=== PATIENT | female | born 1985 | race Hispanic/Latino ===

== ENCOUNTER → 2017-10-14 | Outpatient (CLI) | payer MEDICAID, OTHER | END | disposition home or self-care (01) | LOC: RAH 12:59 | PROVIDERS: ATTEND Otolaryngology Plastic Surgery within the Head & Neck | DX: R22.1 Localized swelling, mass and lump, neck (principal) | CPT/HCPCS: 76536 ==

== ENCOUNTER → 2017-11-16 | Outpatient (CLI) | payer OTHER, MEDICAID ==
[2017-11-16 09:04] LABS: INR 0.91 (0.85-1.15); PARTIAL THROMBOPLASTIN TIME 28.3 SEC (26.3-35.5); PROTHROMBIN TIME 9.6 SEC (9.6-11.6)
== END | disposition home or self-care (01) ==
LOC: RAH 08:08
PROVIDERS: ATTEND Otolaryngology Plastic Surgery within the Head & Neck
DX: D49.89 Neoplasm of unspecified behavior of other specified sites (principal)
CPT/HCPCS: 20206; 36415; 76942; 85610; 85730; 88305; A4215

== ENCOUNTER 2018-03-28 17:41 | Observation (INO) | payer OTHER, MEDICAID ==
[~2018-03-28] VITALS: Ht 157.5 cm; Wt 131.1 kg
[2018-03-28 18:56] LABS: APPEARANCE,URINE Clear (CLEAR); BILIRUBIN,URINE Negative (NEGATIVE); COLOR,URINE Yellow (YELLOW); GLUCOSE, URINE (UA) Negative (NEGATIVE); KETONES,URINE Negative (NEGATIVE); LEUKOCYTE ESTERASE ,URINE Small (NEGATIVE); NITRATE,URINE Negative (NEGATIVE); OCCULT BLOOD,URINE Negative (NEGATIVE); PH,URINE 7.5 (5.0-8.0); PROTEIN,URINE Negative (NEGATIVE)
[2018-03-28 19:22] VITALS: BP 123/84
[2018-03-28 19:40] LABS: BACTERIA,URINE Moderate /HPF (None Seen); RBC,URINE None Seen /HPF (0-1)
[2018-03-28] MEDS ORDERED: CEFTRIAXONE SODIUM 1 GM IVP ONE (20:00)
[2018-03-28] MEDS ORDERED: LACTATED RINGERS 1000ML IV ONE (20:00)
== END 2018-03-28 21:15 | disposition home or self-care (01) ==
LOC: EDH 17:41 → LDH 17:43
PROVIDERS: ADMIT Specialist; ATTEND Specialist
DX: O62.9 Abnormality of forces of labor, unspecified (principal); O09.523 Supervision of elderly multigravida, third trimester; Z3A.34 34 weeks gestation of pregnancy; Z79.899 Other long term (current) drug therapy
CPT/HCPCS: 81001; 96374; 99285; G0378 ×3; J0696; J7120; 96360

== ENCOUNTER 2018-04-21 16:22 | Inpatient (IN) | payer OTHER, MEDICAID ==
[~2018-04-21] VITALS: Ht 157.5 cm; Wt 130.2 kg
[2018-04-21 17:24] LABS: APPEARANCE,URINE Clear (CLEAR); BILIRUBIN,URINE Negative (NEGATIVE); COLOR,URINE Yellow (YELLOW); GLUCOSE, URINE (UA) Negative (NEGATIVE); KETONES,URINE >=80 mg/dL (NEGATIVE); LEUKOCYTE ESTERASE ,URINE Moderate (NEGATIVE); NITRATE,URINE Negative (NEGATIVE); OCCULT BLOOD,URINE Negative (NEGATIVE); PH,URINE 5.5 (5.0-8.0); PROTEIN,URINE Trace (NEGATIVE)
[2018-04-21 17:24] LABS: BASOPHILS % (AUTO) 0.4 % (0.0-5.0); EOSINOPHILS % (AUTO) 0.7 % (0.0-8.0); HEMATOCRIT 28.3 % (36-48); LYMPHOCYTES % (AUTO) 18.8 % (21.0-51.0); MEAN CORPUSCULAR HEMOGLOBIN 21.3 pg (27.0-33.0); MEAN CORPUSCULAR HGB CONC 31.8 g/dL (32.0-36.0); MEAN CORPUSCULAR VOLUME 67.2 fL (79-99); MONOCYTES % (AUTO) 5.5 % (3.0-13.0); NEUTROPHILS % (AUTO) 74.6 % (40.0-77.0); PLATELET COUNT (AUTO) 449 K/uL (130-400); RED BLOOD CELL COUNT(AUTO) 4.21 MIL/uL (4.00-5.50); RED CELL DISTRIBUTION WIDTH 17.2 % (11.0-15.5)
[2018-04-21 17:29] LABS: RBC,URINE 0-1 /HPF (0-1)
[2018-04-21 17:29] LABS: CREATININE 0.6 mg/dL (0.5-1.5); POTASSIUM 3.6 mmol/L (3.5-5.1)
[2018-04-21 17:30] LABS: BACTERIA,URINE Few /HPF (None Seen); SQUAMOUS EPITHELIAL CELL,UR Few /HPF (0-2)
[2018-04-21 17:31] LABS: MUCUS,URINE Few LPF (None Seen)
[2018-04-21 17:34] LABS: ALBUMIN 2.6 g/dL (3.5-5.0); BILIRUBIN,TOTAL 0.3 mg/dL (0.2-1.0); TOTAL PROTEIN, SERUM 7.4 g/dL (6.0-8.3); URIC ACID 3.8 mg/dL (2.6-7.2)
[2018-04-21 17:58] LABS: INR 0.9 (0.85-1.15); PROTHROMBIN TIME 9.5 SEC (9.6-11.6)
[2018-04-21 18:30] VITALS: BP 138/86
[2018-04-21 19:34] VITALS: BP 143/90
[2018-04-22] VITALS (7 sets, daily range): BP systolic 100–139; BP diastolic 59–92
[2018-04-22] MEDS ORDERED: PREN1TAB80 PO (00:44)
[2018-04-22 18:06] LABS: COLLECTION PERIOD,URINE 24 HR; CREATININE,SERUM FOR CRCL 0.6 mg/dL (0.6-1.3); TOTAL VOLUME 24HRS,URINE 1650 mL; TPROTEIN TIMED,URINE 22 mg/dL; TPROTEIN U,24HR CALC 363 mg/24HR (0-165)
[2018-04-22] MEDS ORDERED: DINOPROSTONE 10 MG VAGINAL SUPP VG ONE (20:00)
[2018-04-22] MEDS: LACTATED RINGERS 1000ML 1,000 ML IV PRN (21:11)
[2018-04-23] MEDS: LACTATED RINGERS 1000ML 1,000 ML IV PRN (02:56)
[2018-04-23] MEDS ORDERED: LACTATED RINGERS 1000ML 1,000 ML IV ONE (05:03)
[2018-04-23] MEDS ORDERED: OXYTOCIN 10 USP UNITS/ML ONE (05:04)
[2018-04-23] MEDS ORDERED: OXYTOCIN 10 USP UNITS/ML 20 UNIT in LACTATED RINGERS 1000ML 1,000 ML IV SCH (06:00)
[2018-04-23 07:33] LABS: HEPATITIS Bs ANTIGEN SCREEN P Negative (Negative)
[2018-04-23] MEDS ORDERED: NALOXONE HCL 0.4 MG/1 ML ML IV PRN (08:45)
[2018-04-23] MEDS ORDERED: ROPIVACAINE 0.2%200ML EPIDURAL 200 ML EP SCH (08:45)
[2018-04-23] MEDS ORDERED: LACTATED RINGERS 500 ML 500 ML IV PRN (08:45)
[2018-04-23] MEDS ORDERED: EPHEDRINE SULFATE 50 MG/ML AMPULE IVP PRN (08:45)
[2018-04-23] MEDS ORDERED: ROPIVACAINE 0.2% 100ML VIAL 100 ML EP SCH (21:30)
[2018-04-24] MEDS: LACTATED RINGERS 1000ML 1,000 ML IV PRN (01:46)
[2018-04-24] MEDS ORDERED: LACTATED RINGERS 1000ML 1,000 ML IV ONE (05:58)
[2018-04-24] MEDS ORDERED: OXYTOCIN 10 USP UNITS/ML ONE (05:58)
[2018-04-24] MEDS ORDERED: CEFAZOLIN SODIUM 1 GM VIAL ONE (15:21)
[2018-04-24] MEDS ORDERED: LIDOCAINE PF 2% 5ML ABBOJECT ONE (15:22)
[2018-04-24] MEDS ORDERED: KETAMINE HCL 100 MG/ML 5ML VIAL IJ ONE (15:23)
[2018-04-24] MEDS ORDERED: PROPOFOL 10 MG/ML 20ML VIAL IV ONE (15:23)
[2018-04-24] MEDS ORDERED: CEFAZOLIN SODIUM 1 GM VIAL IVP PRN (15:30)
[2018-04-24] MEDS ORDERED: CEFAZOLIN SODIUM 1 GM VIAL IVP ONE (15:35)
[2018-04-24] MEDS ORDERED: FENTANYL CITRATE PF 50 MCG/1 ML 2ML VIAL ONE ×2 (15:44→15:59)
[2018-04-24] MEDS ORDERED: DURAMORPH PF1 MG/ML 10ML AMP IV ONE (15:53)
[2018-04-24] MEDS ORDERED: SUCCINYLCHOLINE CHLORIDE 20 MG/ML 10 ML VIAL ONE (16:31)
[2018-04-24] MEDS ORDERED: ONDANSETRON HCL 4 MG/2 ML VIAL ONE (16:32)
[2018-04-24] MEDS ORDERED: OXYTOCIN-LR 20 UNITS/1000 ML 1,000 ML IV PRN (16:52)
[2018-04-24] MEDS ORDERED: PROMETHAZINE HCL 25 MG/ML 1ML AMPULE IM PRN ×2 (17:00→19:30)
[2018-04-24] MEDS ORDERED: MEPERIDINE-PF 75 MG/ML SYG IM PRN (17:00)
[2018-04-24] MEDS ORDERED: SODIUM CHLORIDE 0.9% 10 ML VIAL IVP PRN (17:00)
[2018-04-24] MEDS ORDERED: ONDANSETRON HCL 4 MG/2 ML VIAL IVP PRN ×2 (19:30)
[2018-04-24] MEDS ORDERED: NALOXONE HCL 0.4 MG/1 ML ML IVP PRN ×2 (19:30)
[2018-04-24] MEDS ORDERED: MORPHINE SULFATE 2 MG/ML 1ML SYG IVP PRN (19:30)
[2018-04-24] MEDS ORDERED: ONDANSETRON HCL 4 MG/2 ML 8 MG in SODIUM CHLORIDE 0.9% 50 ML IVP NR (19:30)
[2018-04-24] MEDS ORDERED: METOCLOPRAMIDE 10 MG/2 ML VIAL IVP PRN (19:30)
[2018-04-24] MEDS ORDERED: DiphenhydrAMINE HCL 50 MG/ML VIAL IVP PRN (19:30)
[2018-04-24] MEDS ORDERED: EPHEDRINE SULFATE 50 MG/ML AMPULE IVP PRN (19:30)
[2018-04-24] MEDS ORDERED: HYDROCODONE/ACETAMINOPHEN 5/325 MG TAB PO PRN ×2 (19:30)
[2018-04-24] MEDS: DEXTROSE 5 %-0.45 % NACL 1,000 ML IV PRN (20:00)
[2018-04-24 20:20] VITALS: BP 133/80
[2018-04-24 23:49] VITALS: BP 130/77
[2018-04-25] MEDS: DEXTROSE 5 %-0.45 % NACL 1,000 ML IV PRN (03:01)
[2018-04-25 03:46] VITALS: BP 132/79
[2018-04-25 06:17] LABS: HEMATOCRIT 22.9 % (36-48); MEAN CORPUSCULAR HEMOGLOBIN 21.1 pg (27.0-33.0); MEAN CORPUSCULAR HGB CONC 31.2 g/dL (32.0-36.0); MEAN CORPUSCULAR VOLUME 67.9 fL (79-99); PLATELET COUNT (AUTO) 382 K/uL (130-400); RED BLOOD CELL COUNT(AUTO) 3.37 MIL/uL (4.00-5.50); RED CELL DISTRIBUTION WIDTH 17.2 % (11.0-15.5); WHITE BLOOD COUNT (AUTO) 13.3 K/uL (4.8-10.8)
[2018-04-25 07:35] VITALS: BP 103/78
[2018-04-25] MEDS ORDERED: ACETAMINOPHEN EXTRA STRENGTH 500 MG TABLET PO PRN (11:45)
[2018-04-25] MEDS ORDERED: ACETAMINOPHEN-CODEINE 300/30MG TAB PO PRN (11:45)
[2018-04-25] MEDS ORDERED: DIPH,PERTUSS(ACELL),TET VAC/PF 0.5 ML VIAL IM SCH (11:45)
[2018-04-25] MEDS ORDERED: BISACODYL 10 MG SUPP.RECT RC PRN (11:45)
[2018-04-25 11:52] VITALS: BP 102/76
[2018-04-25] MEDS: SIMETHICONE 80 MG TAB.CHEW PO PRN ×2 (14:37→20:24)
[2018-04-25] MEDS: IBUPROFEN 600 MG TABLET PO PRN (14:38)
[2018-04-25 15:51] VITALS: BP 117/72
[2018-04-25 19:10] VITALS: BP 112/61
[2018-04-25] MEDS: DOCUSATE SODIUM 100 MG CAP PO SCH (20:24)
[2018-04-25 22:00] VITALS: BP 127/68
[2018-04-26 02:00] VITALS: BP 133/74
[2018-04-26] MEDS: IBUPROFEN 600 MG TABLET PO PRN (05:17)
[2018-04-26 05:30] VITALS: BP 130/74
[2018-04-26 08:00] VITALS: BP 120/68
[2018-04-26] MEDS: SIMETHICONE 80 MG TAB.CHEW PO PRN (10:25)
[2018-04-26] MEDS: DOCUSATE SODIUM 100 MG CAP PO SCH (10:25)
== END 2018-04-26 11:30 | disposition home or self-care (01) | DRG 785 ==
LOC: OBSVTOIN 16:22 → LDH 16:22 → WSH 18:30 → LDH 04-22 20:35 → WSH 04-24 20:15
PROVIDERS: ADMIT Specialist; ATTEND Specialist
PROC: 0UB70ZZ Excision of Bilateral Fallopian Tubes, Open Approach (ICD-10-PCS; 2018-04-24)
PROC: 10D00Z1 Extraction of Products of Conception, Low, Open Approach (ICD-10-PCS; principal; 2018-04-24 15:31)
PROC: 3E0234Z Introduction of Serum, Toxoid and Vaccine into Muscle, Percutaneous Approach (ICD-10-PCS; 2018-04-25)
DX: O14.04 Mild to moderate pre-eclampsia, complicating childbirth (principal); O76 Abnormality in fetal heart rate and rhythm complicating labor and delivery; Z37.0 Single live birth; Z3A.38 38 weeks gestation of pregnancy; Z30.2 Encounter for sterilization; Z23 Encounter for immunization
CPT/HCPCS: 36415; 59025; 59510; 80053; 81001; 82575; 84156; 84550; 85025; 85027; 85384; 85610; 85730; 86592; 86850; 86900; 86901; 87340; 88302; 90715; A4344; A4606; J0330; J0690; J2001; J2175; J2274; J2405; J2550; J2590; J2704; J2795; J3010; J3490; J7120

== ENCOUNTER 2022-11-18 21:22 | Emergency (ER) | payer BC, MEDICAID, OTHER ==
[~2022-11-18] VITALS: Ht 157.5 cm; Wt 94.3 kg
[~2022-11-18 21:22] MED LIST: PREN1TAB80 PO
[2022-11-19 01:31] LABS: BASOPHILS % (AUTO) 0.9 % (0.0-5.0); EOSINOPHILS % (AUTO) 4.4 % (0.0-8.0); HEMATOCRIT 25.2 % (36-48); LYMPHOCYTES % (AUTO) 32.9 % (21.0-51.0); MEAN CORPUSCULAR HGB CONC 25.4 g/dL (32.0-36.0); MEAN CORPUSCULAR VOLUME 58.9 fL (79-99); MONOCYTES % (AUTO) 6.3 % (3.0-13.0); NEUTROPHILS % (AUTO) 55.1 % (40.0-77.0); RED BLOOD CELL COUNT(AUTO) 4.28 MIL/uL (4.00-5.50); RED CELL DISTRIBUTION WIDTH 24.9 % (11.0-15.5); WHITE BLOOD COUNT (AUTO) 10.5 K/uL (4.8-10.8)
[2022-11-19 01:36] LABS: CREATININE 0.7 mg/dL (0.5-1.5); POTASSIUM 3.3 mmol/L (3.5-5.1)
[2022-11-19 01:40] LABS: ALBUMIN 3.8 g/dL (3.5-5.0); TOTAL PROTEIN, SERUM 7.4 g/dL (6.0-8.3)
[2022-11-19 01:56] LABS: PLATELET COUNT (AUTO) 737 K/uL (130-400)
[2022-11-19 03:52] LABS: PLATELET MORPHOLOGY COMMENT MARKED INCREASE
[2022-11-19 04:55] VITALS: BP 110/60
== END 2022-11-19 05:23 | disposition home or self-care (01) ==
LOC: EDH 21:22
DX: D64.9 Anemia, unspecified (principal)
CPT/HCPCS: 99285; 36430; 80053; 85025; 86850; 86900; 86901; 86923; 36415 ×2; P9016